=== PATIENT | male | born 1960 | race Caucasian/White ===

== ENCOUNTER 2016-07-06 11:09 | Observation (INO) | payer OTHER ==
[~2016-07-06] VITALS: Ht 177.8 cm; Wt 100.8 kg
[~2016-07-06 11:09] MED LIST: AMBIEN CR12.5 MG PO; ASPIRIN325 MG PO; BLOOD PRESSURE PO; FLECAINIDE ACE150 MG PO; HYDROCODON-ACE1 EAC7 PO; LIDODERM 5% P1 PATCH TD; LIPITOR10 MG PO; METHYLPHENIDATE54 MG PO; MONOPRIL20 MG PO; NABUMETONE750 MG PO; NITROSTAT0.4 MG SL; PANTOPRAZOLE SO40 MG PO; RESTORIL30 MG PO; TAMBOCOR100 MG PO; TEMAZEPAM15 MG PO; TIZANIDINE HCL4 MG PO; WELLBUTRIN SR150 MG PO
[2016-07-06 11:29] LABS: HEMATOCRIT 42.2 % (38.0-50.0); MCH 30.7 PG (29.0-34.0); MCHC 34.6 G/DL (30.0-36.0); MCV 88.7 FL (86-99); MEAN PLAT.VOLUME 9.6 uM^3 (9.0-12.4); PLATELET COUNT 196 K/uL (156-360); RBC DIS.WIDTH-CV 13.4 % (11.8-14.6); RBC DIS.WIDTH-SD 43.4 % (39-53); RED BLOOD COUNT 4.76 M/uL (4.00-5.50); WHITE BLOOD COUNT 7.6 K/uL (4.1-10.2)
[2016-07-06 11:49] LABS: CHLORIDE 101 mEq/L (99-109); POTASSIUM 3.8 mEq/L (3.7-5.4); SODIUM 136 mEq/L (136-147)
[2016-07-06 11:51] LABS: GLUCOSE 109 mg/dL (70-99); TROP-I INTERPRETATION NEGATIVE; TROPONIN-I < 0.01 ng/mL (0.0-0.30)
[2016-07-06 11:52] LABS: ANION GAP 10 MEQ/L (2-14)
[2016-07-06 11:55] LABS: GFR ESTIMATE (CALCULATED) > 59 mL/min/
[2016-07-06 11:56] LABS: UREA NITROGEN (BUN) 17 mg/dL (9-23)
[2016-07-06] MEDS ORDERED: ATORVASTATIN CA40 MG PO (12:38)
[2016-07-06] MEDS ORDERED: LO-DOSE ASPIRIN81 M2 PO (12:39)
[2016-07-06] MEDS ORDERED: CYMBALTA60 MG PO (12:41)
[2016-07-06] MEDS ORDERED: HYDROCHLOROTHIA25 MG PO (12:42)
[2016-07-06] MEDS ORDERED: KLOR-CON M2020 MEQ PO (12:42)
[2016-07-06] MEDS ORDERED: DICLOFENAC SODI75 MG PO (12:43)
[2016-07-06] MEDS ORDERED: DILTIAZEM 24HR240 MG PO (12:44)
[2016-07-06] MEDS ORDERED: MELATONIN10 M1 PO (12:45)
[2016-07-06] MEDS ORDERED: MAGNESIUM400 M1 PO (12:45)
[2016-07-06 15:39] LABS: HDL CHOLESTEROL 43 MG/DL (Desirable>=40); LDL CHOLESTEROL 75 mg/dL (Desirable<100); NON-HDL CHOLESTEROL 88 mg/dL (Desirable<160); TOTAL CHOLESTEROL 131 mg/dL (Desirable<200); TRIGLYCERIDES 63 MG/DL (Normal: <150)
[2016-07-06 18:44] LABS: TROP-I INTERPRETATION NEGATIVE; TROPONIN-I < 0.01 ng/mL (0.0-0.30)
[2016-07-06 19:13] VITALS: BP 132/73
[2016-07-06 19:30] VITALS: BP 123/72
[2016-07-06 23:51] VITALS: BP 161/90
[2016-07-07 01:01] LABS: TROP-I INTERPRETATION NEGATIVE; TROPONIN-I 0.01 ng/mL (0.0-0.30)
[2016-07-07 04:12] VITALS: BP 140/78
[2016-07-07 07:20] VITALS: BP 118/71
[2016-07-07 10:59] VITALS: BP 118/76
[2016-07-07] MEDS ORDERED: PANTOPRAZOLE SO40 MG PO (12:00)
[2016-07-07 13:18] LABS: HEMATOCRIT 39.9 % (38.0-50.0); MCH 30.4 PG (29.0-34.0); MCHC 33.6 G/DL (30.0-36.0); MCV 90.5 FL (86-99); PLATELET COUNT 178 K/uL (156-360); RBC DIS.WIDTH-CV 13.5 % (11.8-14.6); RBC DIS.WIDTH-SD 44.7 % (39-53); RED BLOOD COUNT 4.41 M/uL (4.00-5.50); WHITE BLOOD COUNT 5.3 K/uL (4.1-10.2)
== END 2016-07-07 13:49 | disposition home or self-care (01) ==
LOC: EME 11:09 → EDOF 13:30 → 5WEST 13:30 → EDOF 13:30 → 5WEST 15:06
PROVIDERS: Hospitalist; Physician Assistant
DX: R07.89 Other chest pain (principal); I48.0 Paroxysmal atrial fibrillation; I25.10 Atherosclerotic heart disease of native coronary artery without angina pectoris; I10 Essential (primary) hypertension; E78.5 Hyperlipidemia, unspecified; F41.9 Anxiety disorder, unspecified; F32.9 Major depressive disorder, single episode, unspecified; E66.9 Obesity, unspecified; Z68.31 Body mass index [BMI] 31.0-31.9, adult; G47.33 Obstructive sleep apnea (adult) (pediatric); Z91.19 Patient's noncompliance with other medical treatment and regimen; J45.909 Unspecified asthma, uncomplicated
CPT/HCPCS: 71020; 71275; 80048; 80061; 84484; 85027; 93005; 93306; 99281; 99284; G0378; J1200; J1650; J1885; J7030

== ENCOUNTER 2017-07-09 21:11 | Inpatient (IN) | payer OTHER ==
[~2017-07-09] VITALS: Ht 177.8 cm; Wt 103.6 kg
[~2017-07-09 21:11] MED LIST changes: +ATORVASTATIN CA40 MG PO; +CYMBALTA60 MG PO; +DICLOFENAC SODI75 MG PO; +DILTIAZEM 24HR240 MG PO; +HYDROCHLOROTHIA25 MG PO; +KLOR-CON M2020 MEQ PO; +LO-DOSE ASPIRIN81 M2 PO; +MAGNESIUM400 M1 PO; +MELATONIN10 M1 PO; +SYMBICORT60 INHALAT IH
[2017-07-10 07:40] VITALS: BP 117/78
[2017-07-10 12:10] LABS: HEMATOCRIT 40.1 % (38.0-50.0); HEMOGLOBIN 13.2 G/DL (12.5-16.6); MCH 30.1 PG (29.0-34.0); MCHC 32.9 G/DL (30.0-36.0); MCV 91.6 FL (86-99); PLATELET COUNT 193 K/uL (156-360); RBC DIS.WIDTH-CV 12.7 % (11.8-14.6); RBC DIS.WIDTH-SD 43.1 % (39-53); RED BLOOD COUNT 4.38 M/uL (4.00-5.50); WHITE BLOOD COUNT 10.6 K/uL (4.1-10.2)
[2017-07-10 18:15] VITALS: BP 121/75
[2017-07-10 20:24] VITALS: BP 120/65
[2017-07-10 23:17] VITALS: BP 105/61
[2017-07-11 04:12] VITALS: BP 136/86
[2017-07-11 06:37] LABS: CHLORIDE 99 MEQ/L (99-109); CREATININE 1.4 MG/DL (0.6-1.3); GFR ESTIMATE (CALCULATED) 55 mL/min/ (58.99-99999); GLUCOSE 92 mg/dL (70-99); POTASSIUM 4.2 MEQ/L (3.7-5.4); SODIUM 134 MEQ/L (136-147); UREA NITROGEN (BUN) 16 mg/dL (9-23)
[2017-07-11 08:05] VITALS: BP 128/60
[2017-07-11 11:11] VITALS: BP 106/57
[2017-07-11 11:17] LABS: HEMATOCRIT 34.9 % (38.0-50.0); HEMOGLOBIN 11.6 G/DL (12.5-16.6); MCV 91.8 FL (86-99)
[2017-07-11 15:24] VITALS: BP 97/56
[2017-07-11 23:35] VITALS: BP 99/54
[2017-07-12 08:41] VITALS: BP 114/65
[2017-07-12] MEDS ORDERED: DOCUSATE SODIU100 MG PO (09:13)
[2017-07-12] MEDS ORDERED: CELECOXIB200 MG PO (09:14)
[2017-07-12] MEDS ORDERED: LOVENOX40 MG/0.4 SC (09:14)
[2017-07-12] MEDS ORDERED: ENDOCET 5-3251 EACH PO (09:14)
[2017-07-12 15:03] VITALS: BP 89/54
== END 2017-07-12 17:12 | DRG 470 ==
LOC: ENRESERV 21:11 → 2SOUTH 07-10 06:51 → ENRESERV 07-10 15:13 → 3EAST 07-10 17:55
PROVIDERS: Orthopaedic Surgery
PROC: 0SR902A Replacement of Right Hip Joint with Metal on Polyethylene Synthetic Substitute, Uncemented, Open Approach (ICD-10-PCS; principal; 2017-07-10)
DX: M16.11 Unilateral primary osteoarthritis, right hip (principal); I48.91 Unspecified atrial fibrillation; Z96.642 Presence of left artificial hip joint; E78.00 Pure hypercholesterolemia, unspecified; I10 Essential (primary) hypertension; F32.9 Major depressive disorder, single episode, unspecified; F41.9 Anxiety disorder, unspecified; J45.909 Unspecified asthma, uncomplicated; G47.00 Insomnia, unspecified
CPT/HCPCS: 73501; 80048; 85014; 85018; 85027; 94640; 94640 76; J0131; J1100; J1170; J1650; J1885; J2250; J2405; J2710; J3010; J7050; J7643